=== PATIENT | male | born 1970 | race Caucasian/White ===

== ENCOUNTER 2022-06-04 10:59 | Emergency (ER) | payer SELFPAY ==
[2022-06-04 11:07] VITALS: TEMP 98.1; BMI 27.4
[2022-06-04] MEDS ORDERED: MAG HYDROX/AL HYDROX/SIMETH 30 ML UNIT-DOSE CUP PO ONE (11:28)
[2022-06-04] MEDS ORDERED: FAMOTIDINE 20 MG TABLET PO ONE (11:28)
[2022-06-04] MEDS ORDERED: FAMOTIDINE 20 MG TABLET ONE (11:35)
[2022-06-04] MEDS ORDERED: MAG HYDROX/AL HYDROX/SIMETH 30 ML UNIT-DOSE CUP ONE (11:36)
[2022-06-04 11:58] LABS: HEMATOCRIT 46.2 % (35.4-49); HEMOGLOBIN 16.1 GM/dL (11.7-16.9); MCH 30.4 pg (25.7-33.7); MCHC 34.9 g/dl (32.0-35.9); MEAN CELL VOLUME 87.1 fl (80-96); MEAN PLT VOLUME 9.6 fl (7.5-11.1); PLATELET COUNT 156 10^3/uL (134-434); RDW 13.7 % (11.9-15.9); WHITE BLOOD COUNT 7.2 K/mm3 (4.0-10.0)
[2022-06-04 12:22] LABS: BLOOD UREA NITROGEN 14.8 mg/dL (7-18); CALCIUM 9.3 mg/dL (8.5-10.1)
[2022-06-04 12:24] VITALS: BP 110/69; PULSE 73; RESP 16
[2022-06-04 12:25] LABS: CREATININE 0.9 mg/dL (0.55-1.3)
[2022-06-04 12:27] LABS: BILIRUBIN,TOTAL 0.7 mg/dL (0.2-1); TOT PROT 7.4 g/dl (6.4-8.2)
== END 2022-06-04 12:38 | disposition home or self-care (01) ==
LOC: JER 10:59
DX: R06.00 Dyspnea, unspecified (principal)
CPT/HCPCS: 36415; 71045-TC-FY; 80053; 84484; 85027; 93005; 93010; 99285-25